=== PATIENT | female | born 1970 | race African-American/Black ===

== ENCOUNTER 2016-07-21 19:51 | Emergency (ER) | payer BC ==
--- NOTE | 2016-07-21 20:03 | ER Document Report ---
ED Medical Screen (RME) - General Stated Complaint: URINARY SYMPTOMS Notes: vaginal burning and pain for that past 3 days. Denies any recent abx. currently on her period, denies odor. she states it feels like when she had a yeast infection. has not tried anything OTC. denies any urinary symptoms. currently sexually active with her . previously treated with diflucan I have greeted and performed a rapid initial assessment of this patient. A comprehensive ED assessment and evaluation of the patient, analysis of test results and completion of the medical decision making process will be conducted by additional ED providers. Physical Exam - Vital signs Vitals: Temp Pulse Resp BP Pulse Ox 97.7 F 73 17 141/81 H 100 07/21/16 19:58 07/21/16 19:58 07/21/16 19:58 07/21/16 19:58 07/21/16 19:58 Course - Vital Signs Vital signs: Temp Pulse Resp BP Pulse Ox 97.7 F 73 17 141/81 H 100 07/21/16 19:58 07/21/16 19:58 07/21/16 19:58 07/21/16 19:58 07/21/16 19:58
[2016-07-21 20:42] LABS: APPEARANCE,URINE CLEAR; BILIRUBIN,URINE NEGATIVE (NEGATIVE); GLUCOSE, URINE NEGATIVE (NEGATIVE); KETONES,URINE NEGATIVE (NEGATIVE); LEUKOCYTE ESTERASE,URINE MODERATE (NEGATIVE); NITRITE,URINE NEGATIVE (NEGATIVE); PROTEIN,URINE NEGATIVE (NEGATIVE); UROBILINOGEN,URINE NEGATIVE mg/dL (<2.0)
--- NOTE | 2016-07-21 20:57 | ER Document Report ---
ED General - General Chief Complaint: Vaginal Itching Stated Complaint: URINARY SYMPTOMS Mode of Arrival: Ambulatory Information source: Patient Notes: Patient presents to the emergency department with complaints of vaginal discharge itching and burning for the past 3 days. She reports she had the same symptoms 3 months ago was treated for yeast infection. She denies other symptoms such as fever vomiting diarrhea. She denies pain with void. She denies urinary frequency. TRAVEL OUTSIDE OF THE [place] IN LAST 30 DAYS: No - HPI Onset: Other - 3 days Onset/Duration: Persistent Quality of pain: Burning Pain Level: 2 Associated symptoms: None Exacerbated by: Denies Relieved by: Denies Similar symptoms previously: Yes Recently seen / treated by doctor: No - Related Data Allergies/Adverse Reactions: No Known Allergies Allergy (Unverified 07/21/16 20:05) Past Medical History - General Information source: Patient Last Menstrual Period: current - Social History Smoking Status: Never Smoker Cigarette use (# per day): No Chew tobacco use (# tins/day): No Frequency of alcohol use: Occasional Drug Abuse: None Lives with: Family Family History: Reviewed & Not Pertinent Patient has suicidal ideation: No Patient has homicidal ideation: No - Medical History Medical History: Negative Renal/ Medical History: Denies: Hx Peritoneal Dialysis Past Surgical History: Reports: Hx Section Review of Systems - Review of Systems Notes: Review HPI for review of systems., All other systems negative Physical Exam - Vital signs Vitals: Temp Pulse Resp BP Pulse Ox 97.7 F 73 17 141/81 H 100 07/21/16 19:58 07/21/16 19:58 07/21/16 19:58 07/21/16 19:58 07/21/16 19:58 - Notes Notes: PHYSICAL EXAMINATION: GENERAL: Well-appearing and in no acute distress HEAD: Atraumatic, normocephalic. EYES: Pupils equal round , extraocular movements intact, sclera anicteric, conjunctiva are normal. ENT: nares patent, Moist mucous membranes. NECK: Normal range of motion, supple without lymphadenopathy LUNGS: CTAB and equal. No wheezes rales or rhonchi. HEART: Regular rate and rhythm without murmurs ABDOMEN: Soft, no tenderness. No guarding, no rebound EXTREMITIES: Normal range of motion, no pitting edema. No cyanosis. NEUROLOGICAL: Cranial nerves grossly intact. Normal sensory/motor PSYCH: Normal mood, normal affect. SKIN: Warm, Dry, normal turgor, no rashes or lesions noted - Genitourinary External exam: Normal Speculum exam: Normal Vaginal bleeding: Mild Bimanuel exam: Normal Course - Re-evaluation Re-evalutation: 07/21/16 21:57 Urinalysis shows moderate leukocytes. Although patient does not show any yeast infection via the Wet mount she will be treated with Diflucan for the symptoms. She was instructed to take medications as prescribed. She was also instructed on signs and symptoms of allergic reaction to sulfa medication. Patient believes she's had this medication before without problems. Patient was also instructed on the importance of follow up for recheck. - Vital Signs Vital signs: Temp Pulse Resp BP Pulse Ox 97.7 F 73 17 141/81 H 100 07/21/16 20:00 07/21/16 20:00 07/21/16 20:00 07/21/16 20:00 07/21/16 20:00 - Laboratory Laboratory results interpreted by me: 07/21/16 20:16 Ur Leukocyte Esterase MODERATE H Procedures - Pelvic Exam Pelvic exam Cultures obtained: Yes Wet prep obtained: Yes Herpes culture obtained: No POC sent to lab: No Foreign body removed: No Bimanual exam performed: Yes Witnessed by: murphy cheng Discharge - Discharge Clinical Impression: Vaginal irritation, Elevated blood pressure reading UTI (urinary tract infection) Qualifiers: Urinary tract infection type: site unspecified Hematuria presence: without hematuria Qualified Code(s): N39.0 - Urinary tract infection, site not specified Condition: Stable Disposition: HOME, SELF-CARE Instructions: Trimethoprim-Sulfa (OM), Urinary Tract Infection (OM), Fluconazole (OM), [facility] [place] Additional Instructions: *You have been evaluated for vaginal irritation, UTI, history of yeast infection *Take medication as prescribed *Follow up with your [facility] ICU or the health department for recheck *Avoid sexual intercourse until follow up *Return to ED for worsening condition, changes, needs Monitor your blood pressure. Your blood pressure was elevated today. This may be because you were anxious, in pain or because you need medication. It is important to follow up with your primary care provider for full evaluation. Prescriptions: Fluconazole [Diflucan] 150 mg PO ONCE PRN #1 tablet PRN Reason: Sulfamethoxazole/Trimethoprim [Bactrim Ds Tablet] 1 each PO BID #6 tablet Forms: Elevated Blood Pressure
[2016-07-21] MEDS ORDERED: SULFAMETHOXAZOLE/TRIMETHOPRIM 800-160 MG TABLET PO ONE (21:51)
[2016-07-21] MEDS ORDERED: FLUCONAZOLE 100 MG TABLET PO ONE (21:51)
[2016-07-21 22:42] VITALS: BP 136/82
[2016-07-21 23:01] LABS: CHLAM PCR NOT DETECTED (NOT DETECT)
== END 2016-07-21 22:40 | disposition home or self-care (01) ==
LOC: ER 19:51
DX: N89.8 Other specified noninflammatory disorders of vagina (principal); N39.0 Urinary tract infection, site not specified; R03.0 Elevated blood-pressure reading, without diagnosis of hypertension
CPT/HCPCS: 81001; 81025; 87086; 87210; 87491; 87591; 99283